=== PATIENT | male | born 1960 | race Caucasian/White ===

== ENCOUNTER → 2017-10-24 | Outpatient (CLI) | payer OTHER ==
[~2017-10-24] MED LIST: ACTOS PO; ASPIRIN81 MG PO; CEPHALEXIN500 MG PO; COLACE100 MG PO; GADOBENATE DIMEGLUMINE 1 ML IV ONE; GLIMEPIRIDE2 MG PO; HYDROCHLOROTHIA25 MG PO; LIPITOR20 MG PO; METFORMIN HCL500 MG PO; OMEPRAZOLE40 MG PO; OXYBUTYNIN CHLO10 MG PO; TYLENOL WITH C1 EACH PO
[2017-10-24 14:56] LABS: CREATININE, SERUM 1.45 mg/dL (0.72-1.25)
--- NOTE | 2017-10-24 19:07 | Diagnostic Imaging Report ---
PROCEDURE: MRI ABDOMEN WOW TECHNIQUE: Axial T1 in and out of phase, axial T2, fat-sat, coronal, T2 with and without fat-sat, axial DWI, and ADC MR images of the abdomen were performed before the intravenous administration of 20 cc of gadolinium. Axial T1, GRE dynamic images in precontrast, arterial, portal venous and delayed phases were obtained. Delayed postcontrast ASSETT axial images were also performed. COMPARISON: Patients [facility], CT, CT ABDOMEN/PELVIS W, 06/12/2016, 3:22. Patients [facility], US, US RETROPERITONEAL ( KIDNEY )., 04/05/2017, 8:56. INDICATIONS: History of left RCC. Status post left nephrectomy FINDINGS: LOWER THORAX: Unremarkable. LIVER: Normal hepatic size and contour. No hepatic signal abnormality. No focal hepatic lesions. BILIARY: No intra-or extrahepatic biliary ductal dilation. Common bile duct is normal in caliber. Gallbladder is unremarkable. PANCREAS: No mass or ductal dilatation. SPLEEN: No splenomegaly. ADRENALS: Right adrenal is unremarkable. Left adrenal gland is not clearly visualized and may be absent. KIDNEYS: Stable postoperative changes of left nephrectomy without enhancing soft tissue in the left renal fossa. Normal enhancement of the right kidney. No hydronephrosis or evidence of obstruction. 0.5 cm T2 hyperintense, T1, isointense, mostly exophytic lesion in the anterior, interpolar right kidney, without significant internal enhancement (series 11, image 163 and series 5, image 28), consistent with a small cyst PERITONEUM / RETROPERITONEUM: No upper abdominal free fluid. LYMPH NODES: No upper abdominal lymphadenopathy. VESSELS: Unremarkable. BONES AND SOFT TISSUES: No abnormal bone marrow signal. Linear T2 hypointense, T1, hypointense structure courses through the subcutaneous soft tissues of the anterior right chest and abdominal wall (for example series 3, image 51 and series 8, image 38) and appears to enter the peritoneal cavity consistent with a [employer] shunt. Soft tissues are otherwise unremarkable. IMPRESSION: 1. status post left nephrectomy without MR evidence of residual or recurrent disease. No metastatic disease in the abdomen. 2. Right kidney is unremarkable. Boo Richardson M.D. Dictated by: Boo Richardson M.D. on 10/24/2017 at 19:08 Electronically approved by: Boo Richardson M.D. on 10/24/2017 at 19:08
== END ==
LOC: MRI 13:47
PROVIDERS: ATTEND Urology
DX: C64.2 Malignant neoplasm of left kidney, except renal pelvis (principal)
CPT/HCPCS: 36415; 74183; 82565; 84520

== ENCOUNTER → 2018-06-13 | Outpatient (CLI) | payer OTHER ==
[~2018-06-13] MED LIST changes: -GADOBENATE DIMEGLUMINE 1 ML IV ONE
--- NOTE | 2018-06-13 15:24 | Diagnostic Imaging Report ---
EXAM: Renal Ultrasound COMPARISON: Renal ultrasound 04/05/2017 and renal MRI 10/24/2017. TECHNIQUE: Transverse and longitudinal images of the kidneys and bladder were obtained. FINDINGS: Right Kidney: Length: 12.0 cm Appearance: Normal echogenicity. Collecting system: No hydronephrosis Stones: None Cyst/Mass: None Left Kidney: Status post left nephrectomy. No evidence of mass in the nephrectomy bed. Bladder: Unremarkable in appearance. Right ureteral jet is seen. IMPRESSION: Status post left nephrectomy. Unremarkable sonographic appearance of the right kidney. Signed by: Dr. Chantal Hall MD on 06/13/2018 3:21 PM
--- NOTE | 2018-06-13 15:30 | Diagnostic Imaging Report ---
EXAMINATION: CHEST 2 VIEWS COMPARISON: Chest radiograph 06/28/2016. FINDINGS: TUBES and LINES: None. LUNGS: Lungs are well inflated. Minimal patchy left basilar opacity, likely atelectasis. There is no evidence of pneumonia or pulmonary edema. PLEURA: No pleural effusion or pneumothorax. HEART AND MEDIASTINUM: The cardiomediastinal silhouette is unremarkable. BONES AND SOFT TISSUES: No acute osseous lesion. Soft tissues are unremarkable. UPPER ABDOMEN: No free air under the diaphragm. IMPRESSION: No acute radiographic abnormality. Signed by: Dr. Chantal Hall MD on 06/13/2018 3:27 PM
== END ==
LOC: US 14:18
PROVIDERS: ATTEND Urology
DX: C64.2 Malignant neoplasm of left kidney, except renal pelvis (principal)
CPT/HCPCS: 71046; 76770

== ENCOUNTER → 2018-12-26 | Outpatient (CLI) | payer BC ==
--- NOTE | 2018-12-26 07:39 | Diagnostic Imaging Report ---
EXAM: CHEST 2 VIEWS, PA and lateral DATE: 12/26/2018 Time stamp on exam: 7:07 AM INDICATION: History of left nephrectomy COMPARISON: 06/13/2018 FINDINGS: LINES/TUBES: Right chest [employer]ACHINE shunt line noted. LUNGS: No consolidations or edema. No pulmonary nodules are identified. PLEURA: No effusions or pneumothorax. HEART AND MEDIASTINUM: Normal size and contour. BONES AND SOFT TISSUES: No acute findings. Degenerative changes of the spine. Clips in the lower abdomen seen on the lateral view. IMPRESSION: No acute thoracic abnormality. Signed by: Dr. Rubén Blas DO on 12/26/2018 7:36 AM
--- NOTE | 2018-12-26 12:04 | Diagnostic Imaging Report ---
Renal ultrasound. History: Left nephrectomy for renal cancer Discussion: Transverse and longitudinal images of the kidneys were obtained demonstrating a normal appearing right kidney with normal echogenicity. There is no evidence of hydronephrosis, mass or renal calculus. The right kidney measures 12.2 x 6.4 x 4.7 cm with a maximal cortical thickness of 1.9 cm. Left kidney is absent with no evidence of a mass present within the renal bed. The urinary bladder is unremarkable. Estimated prevoid volume is 117 cc. The prostate measures 2.9 x 2.1 x 2.5 cm. There is no evidence of free fluid. IMPRESSION: Normal right renal and bladder ultrasound. Signed by: Dr. Rubén Blas DO on 12/26/2018 12:01 PM
== END ==
LOC: US 06:45
PROVIDERS: ATTEND Urology
DX: C64.2 Malignant neoplasm of left kidney, except renal pelvis (principal)
CPT/HCPCS: 71046; 76770

== ENCOUNTER → 2019-05-29 | Outpatient (CLI) | payer BC ==
--- NOTE | 2019-05-29 17:35 | Diagnostic Imaging Report ---
EXAMINATION: CHEST 2 VIEWS INDICATION: Renal malignancy COMPARISON: Chest radiograph 12/26/2018 FINDINGS: LINES/TUBES:Partially visualized ventriculoperitoneal shunt catheter. LUNGS:The lungs are well-inflated. No focal consolidation or pulmonary edema. No radiographically apparent pulmonary nodules. PLEURA:No pleural effusion or pneumothorax. MEDIASTINUM:The cardiomediastinal silhouette appears normal in size and shape. BONES/SOFT TISSUES:No acute osseous injury. ABDOMEN:No free air under the diaphragm. IMPRESSION: No acute cardiopulmonary process. No radiographically apparent pulmonary nodules. Signed by: Tera Cristina MD on 05/29/2019 5:31 PM
--- NOTE | 2019-05-29 17:37 | Diagnostic Imaging Report ---
EXAM: US RENAL RETROPERITONEAL COMP DATE: 05/29/2019 4:00 PM INDICATION: ^MALIGNANT NEOPLASM OF LEFT KIDNEY COMPARISON: Renal ultrasound, 12/26/2018 FINDINGS: Grayscale and color flow Doppler ultrasound of the kidneys and urinary bladder performed. Right kidney: 12.0 x 5.3 x 5.5 cm. Cortical thickness 1.6 cm. Cortical echogenicity normal. No hydronephrosis or contour deforming mass. Left kidney: Surgically absent. No mass or fluid collection is seen in the left renal fossa. Urinary bladder: Unremarkable appearance. Right ureteral jet is seen. Volume 105 cc. Prostate not visualized. IMPRESSION: Right kidney appears unremarkable with no hydronephrosis or mass. The left kidney is surgically absent. Signed by: Dr. Matti Araya M.D. on 05/29/2019 5:34 PM
== END ==
LOC: US 16:39
PROVIDERS: ATTEND Urology
DX: C64.2 Malignant neoplasm of left kidney, except renal pelvis (principal)
CPT/HCPCS: 71046; 76770

== ENCOUNTER → 2019-12-21 | Outpatient (CLI) | payer BC ==
--- NOTE | 2019-12-21 08:39 | Diagnostic Imaging Report ---
EXAM: CHEST 2 VIEWS DATE: 12/21/2019 8:16 AM INDICATION: Malignant neoplasm of kidney COMPARISON: 05/29/2019 FINDINGS: Partially visualized ventriculoperitoneal shunt catheter noted overlying the right hemithorax. The trachea is midline. The lungs are symmetrically expanded without evidence for large focal consolidation, pneumothorax, or significant pleural effusion. The cardiomediastinal silhouette and pulmonary vasculature are within normal limits. No acute osseous abnormality is identified. The surrounding soft tissues are unremarkable. IMPRESSION: No acute cardiopulmonary process identified. Signed by: Dr. Héctor Perry MD on 12/21/2019 8:36 AM
--- NOTE | 2019-12-21 09:29 | Diagnostic Imaging Report ---
EXAM: US RENAL RETROPERITONEAL COMP DATE: 12/21/2019 8:14 AM INDICATION: Malignant neoplasm of kidney COMPARISON: 05/29/2019 FINDINGS: The right kidney is normal in size measuring 12.2 x 5.1 x 5.4 cm with cortical thickness of 2.3 cm. Cortical echogenicity is within normal limits. There is a 7 mm echogenic focus identified within the superior pole the right kidney which may reflect a nonobstructing stone versus parenchymal calcification. There is no evidence for solid renal mass, hydronephrosis, or shadowing calculi. The left kidney is surgically absent. No abnormalities identified within the left renal fossa. The partially distended urinary bladder demonstrates no significant abnormalities. Prevoid volume is 67 cc. IMPRESSION: 7 mm nonobstructing stone versus parenchymal calcification identified within the superior pole of the right kidney. Otherwise, unremarkable sonographic appearance of the right kidney. Status post left nephrectomy. Signed by: Dr. Héctor Perry MD on 12/21/2019 9:26 AM
== END ==
LOC: US 07:50
PROVIDERS: ATTEND Urology
DX: C64.2 Malignant neoplasm of left kidney, except renal pelvis (principal)
CPT/HCPCS: 71046; 76770

== ENCOUNTER → 2020-01-08 | Outpatient (CLI) | payer BC ==
--- NOTE | 2020-01-08 22:01 | Diagnostic Imaging Report ---
EXAM: CT Abdomen and Pelvis WITHOUT contrast INDICATION: ^[id number] ^[id number] ^MALIGNANT NEOPLASM LEFT OF LEFT KIDN COMPARISON: None. TECHNIQUE: Abdomen and pelvis were scanned utilizing a multidetector helical scanner from the lung base to the pubic symphysis without administration of IV contrast. Absence of intravenous contrast decreases sensitivity for detection of focal lesions and vascular pathology. Coronal and sagittal reformations were obtained. Routine protocol was performed. IV CONTRAST: None ORAL CONTRAST: None COMPLICATIONS: None RADIATION DOSE: Total DLP: 495 mGy*cm Estimated effective dose: (DLP x 0.015 x size factor) mSv CTDIvol has been reviewed. It is below the limits set by the Radiation Protocol Committee (RPC). Dose modulation, iterative reconstruction, and/or weight based adjustment of the mA/kV was utilized to reduce the radiation dose to as low as reasonably achievable. FINDINGS: LINES and TUBES: Partially visualized right sided ventriculoperitoneal shunt tubing terminates in the pelvis. LOWER THORAX: Unremarkable HEPATOBILIARY: No focal hepatic lesions. No biliary ductal dilation. GALLBLADDER: No radio-opaque stones or sludge. No wall thickening. SPLEEN: No splenomegaly. PANCREAS: No focal masses or ductal dilatation. ADRENALS: No adrenal nodules KIDNEYS/URETERS: The left kidney is surgically absent. Unremarkable noncontrast appearance of the right kidney. No right renal stone. GI TRACT: No abnormal distention, wall thickening, or evidence of bowel obstruction. PELVIC ORGANS/BLADDER: Unremarkable. LYMPH NODES: No lymphadenopathy. VESSELS: Unremarkable. PERITONEUM / RETROPERITONEUM: Irregular encapsulated fat stranding of the left retroperitoneum in the left nephrectomy bed suggestive of fat stranding. No discrete adenopathy. BONES: Unremarkable. SOFT TISSUES: Unremarkable. IMPRESSION: 1. Left nephrectomy surgical change. No specific evidence of recurrent tumor. Of note, the sensitivity of this exam for the detection of recurrent neoplasm is limited by lack of intravenous contrast enhancement. This study may be used as a baseline as there are no available postoperative comparisons. 2. No acute abnormalities. Signed by: Sadi Mckenzie MD on 01/08/2020 9:58 PM
== END ==
LOC: CT 08:03
PROVIDERS: ATTEND Urology
DX: C64.2 Malignant neoplasm of left kidney, except renal pelvis (principal)
CPT/HCPCS: 74176

== ENCOUNTER → 2023-06-20 | Outpatient (REF) | payer MEDICARE | LOC: MRI 12:44 | PROVIDERS: ATTEND Internal Medicine | DX: R53.1 Weakness (principal); I67.9 Cerebrovascular disease, unspecified | CPT/HCPCS: 70551 ==